=== PATIENT | female | born 1945 | race Caucasian/White ===

== ENCOUNTER → 2018-09-15 17:33 | Outpatient (CLI) | payer MEDICARE ==
[2015-03-01 09:45] VITALS: BMI 31.5
[~2018-09-15 17:33] MED LIST: AMBIEN5 MG PO; ATARAX 25 MG TA25 MG PO; ATIVAN0.5 MG PO; ATROVENT 0.02%2.5 ML UPD; BACTRIM DS TABL1 TAB PO; BENICAR20 MG PO; CARDIZEM CD240 MG PO; CARDURA2 MG PO; CARDURA4 MG PO; CATAPRES0.1 MG PO; CELEBREX200 MG PO; CELEXA40 MG PO; COLACE100 MG PO; CORDARONE200 MG PO; DULCOLAX5 MG PO; DUONEB 2.5-0.5 M3 ML UPD; DURAGESIC1 PATCH .2 TD; DURAGESIC1 PATCH .3 TD; DURAGESIC1 PATCH .3 TRANSDERM; ELAVIL25 MG PO; FERROUS SULFAT325 MG PO; HUMALOG 30100 UNITS/ SC; HYDROCHLOROTH12.5 M1 PO; HYDROCODON-ACE1 EAC7 PO; HYDROCODON-ACE1 EAC9 PO; HYDROCODONE-APA1 TAB PO; K-DUR20 MEQ PO; L-METHYLFOLATE7.5 MG PO; LANOXIN250 MCG PO; LASIX20 MG PO; LEVAQUIN500 MG PO; LEVSIN/ANASP0.125 MG PO; LOVENOX INJ100 MG/ML SQ; LYRICA75 MG PO; MEDROL DOSE PACK4 MG PO; MIRALAX17 GM PO; MULTI-DAY VITAM1 TAB PO; NEPHROCAPS SOFTG1 MG PO; NITRO-BID60 GM TP; NITRO-DUR0.2 MG TD; NORVASC5 MG PO; ONDANSETRON4 MG/2 M3 OR; PRAVACHOL20 MG PO; PROCARDIA XL60 MG PO; PROTONIX40 MG PO; RESTASIS EYE DR30 EA EACH EYE; ROCEPHIN 1 GM IN1 GM IV; SENNA PLUS TA1 UDTAB PO; STERAPRED 5MG 125 MG PO; SYNTHROID100 MCG PO; SYNTHROID112 MCG PO; SYNTHROID125 MCG PO; SYNTHROID137 MCG PO; SYNTHROID25 MCG PO; TAMBOCOR100 MG PO; TENORMIN50 MG PO; TESSALON PERLE100 MG PO; TUMS500 MG PO; TYLENOL 325 MG325 MG PO; TYLENOL650 MG RC; VITAMIN B-1000 MCG/M IM; VITAMIN B-12500 MCG PO; XARELTO20 MG PO; ZANAFLEX2 MG PO; ZAROXOLYN5 MG PO; ZOFRAN4 MG PO
[2018-09-25 17:08] LABS: AEROBE ID Final report (())
[2018-09-26 17:07] LABS: AEROBE ID Final report (())
== END | disposition home or self-care (01) ==
LOC: D.LABREF 17:33
PROVIDERS: Podiatrist Foot & Ankle Surgery
DX: L02.416 Cutaneous abscess of left lower limb (principal)

== ENCOUNTER → 2018-11-17 19:37 | Outpatient (CLI) | payer MEDICARE ==
[2015-03-01 09:45] VITALS: BMI 31.5
[2018-11-17 20:33] LABS: ANION GAP 13.4 mmol/L (8-16); CALCIUM 8.3 mg/dL (8.5-10.1); CARBON DIOXIDE 27.4 mmol/L (21.0-32.0); CREATININE - SERUM 0.9 mg/dL (0.6-1.3); POTASSIUM - SERUM 4.8 mmol/L (3.5-5.1)
[2018-11-17 20:42] LABS: BASOPHILS 0.2 % (0-2); EOSINOPHILS 3.1 % (0-7); HEMATOCRIT 30.7 % (36.0-48.0); HEMOGLOBIN 9.7 g/dL (12-16); IMMATURE GRANULOCYTES 0.2 % (0-5); LYMPHOCYTES 31.5 % (15-50); MCH 24.5 pg (26.0-34.0); MCHC 31.6 g/dL (31.0-37.0); MCV 77.5 fL (80.0-100.0); MEAN PLATELET VOLUME 11.1 fL (7.4-10.4); MONOCYTES 9.6 % (2-11); NEUTROPHILS 55.4 % (40-80); RBC 3.96 10x6/uL (4.00-5.40); RDW 16.5 % (11.5-14.5); WBC 6.4 10x3/uL (4.8-10.8)
[2018-11-17 20:47] LABS: PLATELET COUNT 252 10x3/uL (130-400)
[2018-11-17 21:55] LABS: ERYTHROCYTE SEDIMENTATION RATE 28 mm/hr (0-30)
== END | disposition home or self-care (01) ==
LOC: D.LABREF 19:37
PROVIDERS: ATTEND Student in an Organized Health Care Education/Training Program
DX: M86.669 Other chronic osteomyelitis, unspecified tibia and fibula (principal)

== ENCOUNTER 2018-11-24 11:57 | Outpatient (CLI) | payer MEDICARE ==
[~2018-11-24] VITALS: Ht 167.6 cm; Wt 81.8 kg
--- NOTE | ~2018-11-24 | HEMODYNAMI ---
PATIENT:JENA BURT MEDICAL RECORD: [id number] : 43 LOCATION:[facility] ADMISSION DATE: 11/24/18 Generatedon:11/24/201815:17 Patient name: JENA BURT Patient #: [id number] SSN: : 1945 Date of study: 11/24/2018 Page: Of Hemodynamic Procedure Report Patient Data Patient Demographics Procedure consent was obtained First Name: JENA Gender: Female Last Name: CARMEL : 1945 [facility] Initial: K Age: 73 year(s) Patient #: [id number] Race: Unknown Additional ID: [id number] Contact details [address]: [address] [place] [address] State: [place] City: [place] Zip code: [address] Past Medical History Allergies Allergen Reaction Date Comments Reported Other allergy 11/24/2018 codeine Admission Admission Data Admission Date: 11/24/2018 Admission Time: 11:57 Procedure Procedure Types Cath Procedure Peripheral Cath Diagnostic Procedure PICC PICC Line Placement Procedure Description Procedure Date Procedure Date: 11/24/2018 Procedure Start Time: 14:50 Procedure End Time: 15:17 Procedure Staff Name Function Chandler Simmons MD Performing Physician Enma Torres Monitor Enma Torres Scrub Betsy Terrell RN Nurse Procedure Data Cath Procedure Fluoroscopy Diagnostic fluoroscopy Total fluoroscopy Time: 0.3 time: 0.3 min min Diagnostic fluoroscopy Total fluoroscopy dose: 1 dose: 1 mGy mGy Contrast Material Contrast Material Type Amount (ml) Isovue 300 0 Hemodynamics Rest Pre Cath Intra NCS Post Cath Procedure Log Time Note 13:52:12 Betsy Terrell RN sent for patient. Start room use. 13:52:18 Time tracking: Regular hours (M-F 7:00 - 5:00) 13:52:32 Plan of Care:Hemodynamics will remain stable., Cardiac rhythm will remain stable., Comfort level will be maintained., Respiratory function will remain adequate., Patient/ family verbilizes understanding of procedure., Procedure tolerated without complication., Recovers from procedure without complications.. 13:52:48 Use device set IR Diagnostic 13:52:51 Bag Decanter (2002S) opened to sterile field. 13:52:52 Sterile Angiographic Pack opened to sterile field. 13:52:57 Tegaderm 4 x 4 (1626W) opened to sterile field. 14:23:27 Patient received from Outpatients to IR Alert and oriented. Tansferred to table in Supine position. 14:23:30 Warm blankets applied, and jaswinder hugger turned on for patient comfort. 14:23:32 Correct patient and procedure confirmed by team. 14:23:36 Signed procedure consent form obtained from patient. 14:23:38 - 14:24:19 H&P Date Dictated: 11/24/2018 H&P Addendum completed by physician on day of procedure. (MUST COMPLETE FOR ALL OUTPATIENTS). 14:24:22 Pre-procedure instructions explained to patient. 14:24:23 Pre-op teaching completed and patient verbalized understanding. 14:25:35 Family in patients room. 14:25:38 Patient NPO since Lunch. 14:26:00 Patient allergic to Other allergycodeine 14:26:35 Left Arm was prepped with chlora-prep and draped in sterile fashion. 14:40:40 Physician arrived 14:41:04 --------ALL STOP TIME OUT------ 14:41:17 Final Timeout: patient, procedure, and site verified with staff and physician. All members of the team are in agreement. 14:43:36 Procedure started. 14:43:36 Full Disclosure recording started 14:50:49 Local anesthetic to left arm with Lidocaine 1% by Chandler Simmons MD.INITIAL ACCESS ONLY 14:51:01 The picc line kit is used to access the left brachial arm vein. 14:52:33 The PICC LINE IS PLACED AT 46CM. 14:53:31 Contrast amount:Isovue 300 0ml. 15:06:53 Procedure ended.(Physican Out) 15:07:15 Fluoroscopy time 00.30 minutes. 15:07:21 Fluoroscopy dose: 1 mGy 15:07:21 Flurop Dose total: 1 15:10:04 Post left arm:clean and dry 15:10:11 Patient needs reinforcement of post procedure teaching. 15:10:18 See physician's report for complete and final results. 15:10:28 Procedure and supply charges have been captured, reviewed, submitted an d are correct. 15:16:51 Report given to Outpatients. 15:16:56 Patient transfered to Outpatients with Stretcher. 15:17:01 Procedure ended. 15:17:01 Full Disclosure recording stopped Device Usage Item Name Manufacture Quantity Catalog Hospital Part Current Minimal Lot# / Number Charge Number Stock Stock Serial# Code Bag Decanter Microtek 1 [id number] () [employer] Sterile Cardinal 1 [id number] Angiographic Health Pack Tegaderm 4 x 3M 1 [id number] 4 ([id number]) Signature Audit Susan Stage Time Signature Unsigned Intra-Procedure 11/24/2018 Enma 3:17:36 PM Brian Signatures Monitor : Enma Signature : Brian Date : Time : [address] [id number]
[2018-11-24 15:31] VITALS: BP 144/63; Ht 167.6 cm; Wt 81.8 kg
--- NOTE | 2018-11-24 17:24 | NUR ---
INFUSION FINISHED. DC INSTRUCTIONS GIVEN TO PT/FAMILY. DC'D TUBING. PICC LINE PATENT. PT LEFT UNIT VIA WC AT 1726.
== END 2018-11-24 17:26 | disposition home or self-care (01) ==
LOC: D.OPS 11:57
PROVIDERS: ATTEND Student in an Organized Health Care Education/Training Program
DX: M86.669 Other chronic osteomyelitis, unspecified tibia and fibula (principal)

== ENCOUNTER → 2018-11-29 13:41 | Outpatient (CLI) | payer MEDICARE ==
[2018-11-29 15:18] LABS: BASOPHILS 0.2 % (0-2); EOSINOPHILS 1.7 % (0-7); HEMATOCRIT 26.4 % (36.0-48.0); HEMOGLOBIN 8.4 g/dL (12-16); IMMATURE GRANULOCYTES 0.2 % (0-5); LYMPHOCYTES 23.6 % (15-50); MCH 24.7 pg (26.0-34.0); MCHC 31.8 g/dL (31.0-37.0); MCV 77.6 fL (80.0-100.0); MEAN PLATELET VOLUME 10.7 fL (7.4-10.4); MONOCYTES 10.7 % (2-11); NEUTROPHILS 63.6 % (40-80); RDW 17.1 % (11.5-14.5); WBC 6.1 10x3/uL (4.8-10.8)
[2018-11-29 15:33] LABS: PLATELET COUNT 201 10x3/uL (130-400)
[2018-11-29 15:38] LABS: CREATININE - SERUM 0.9 mg/dL (0.6-1.3)
[2018-11-29 16:24] LABS: ERYTHROCYTE SEDIMENTATION RATE 37 mm/hr (0-30)
== END | disposition home or self-care (01) ==
LOC: D.LABREF 13:41
PROVIDERS: Student in an Organized Health Care Education/Training Program
DX: M86.60 Other chronic osteomyelitis, unspecified site (principal)

== ENCOUNTER → 2018-12-06 13:46 | Outpatient (CLI) | payer MEDICARE ==
[2018-11-24 15:31] VITALS: BMI 29.1
[~2018-12-06 13:46] MED LIST changes: +LIPITOR40 MG PO; +LISINOPRIL5 MG PO; +PREMARIN0.625 MG PO; +PROBIOTIC BLEN1 EACH; +TEMAZEPAM30 MG PO; +ZANAFLEX2 M1 PO
[2018-12-06 14:59] LABS: BASOPHILS 0.3 % (0-2); EOSINOPHILS 2.2 % (0-7); HEMATOCRIT 30.5 % (36.0-48.0); HEMOGLOBIN 9.5 g/dL (12-16); IMMATURE GRANULOCYTES 0.2 % (0-5); MCH 24.7 pg (26.0-34.0); MCHC 31.1 g/dL (31.0-37.0); MCV 79.4 fL (80.0-100.0); MONOCYTES 8.3 % (2-11); RBC 3.84 10x6/uL (4.00-5.40); RDW 17.8 % (11.5-14.5); WBC 5.9 10x3/uL (4.8-10.8)
[2018-12-06 15:06] LABS: PLATELET COUNT 244 10x3/uL (130-400)
[2018-12-06 15:34] LABS: C-REACTIVE PROTEIN 0.2 mg/dL (0.0-0.9)
[2018-12-06 16:11] LABS: ERYTHROCYTE SEDIMENTATION RATE 24 mm/hr (0-30)
== END | disposition home or self-care (01) ==
LOC: D.LABREF 13:46
PROVIDERS: ATTEND Student in an Organized Health Care Education/Training Program
DX: M86.669 Other chronic osteomyelitis, unspecified tibia and fibula (principal)

== ENCOUNTER → 2018-12-13 12:34 | Outpatient (CLI) | payer MEDICARE ==
[2018-11-24 15:31] VITALS: BMI 29.1
[2018-12-13 13:37] LABS: BASOPHILS 0.3 % (0-2); EOSINOPHILS 1.8 % (0-7); HEMOGLOBIN 9.1 g/dL (12-16); IMMATURE GRANULOCYTES 0.2 % (0-5); LYMPHOCYTES 23.4 % (15-50); MCH 24.6 pg (26.0-34.0); MCHC 31.4 g/dL (31.0-37.0); MCV 78.4 fL (80.0-100.0); MEAN PLATELET VOLUME 10.7 fL (7.4-10.4); MONOCYTES 8.6 % (2-11); NEUTROPHILS 65.7 % (40-80); PLATELET COUNT 249 10x3/uL (130-400); WBC 6.5 10x3/uL (4.8-10.8)
[2018-12-13 13:58] LABS: CREATINE KINASE 204 UL (21-215); UREA NITROGEN 22 mg/dL (7-18)
[2018-12-13 13:59] LABS: C-REACTIVE PROTEIN < 0.2 mg/dL (0.0-0.9)
[2018-12-13 14:40] LABS: ERYTHROCYTE SEDIMENTATION RATE 24 mm/hr (0-30)
== END | disposition home or self-care (01) ==
LOC: D.LABREF 12:34
PROVIDERS: ATTEND Student in an Organized Health Care Education/Training Program
DX: M86.669 Other chronic osteomyelitis, unspecified tibia and fibula (principal)

== ENCOUNTER → 2018-12-15 10:49 | Outpatient (CLI) | payer MEDICARE ==
[2018-11-24 15:31] VITALS: BMI 29.1
[2018-12-15 11:32] LABS: CREATINE KINASE 215 UL (21-215)
[2018-12-15 11:34] LABS: CKMB 1.6 U/L (0.0-3.6)
== END | disposition home or self-care (01) ==
LOC: D.LABREF 10:49
PROVIDERS: ATTEND Student in an Organized Health Care Education/Training Program
DX: M86.662 Other chronic osteomyelitis, left tibia and fibula (principal)

== ENCOUNTER → 2018-12-20 13:35 | Outpatient (CLI) | payer MEDICARE ==
[2018-11-24 15:31] VITALS: BMI 29.1
[2018-12-20 14:49] LABS: BASOPHILS 0.1 % (0-2); HEMATOCRIT 27.6 % (36.0-48.0); HEMOGLOBIN 8.7 g/dL (12-16); IMMATURE GRANULOCYTES 0.1 % (0-5); LYMPHOCYTES 20.7 % (15-50); MCH 24.5 pg (26.0-34.0); MCHC 31.5 g/dL (31.0-37.0); MCV 77.7 fL (80.0-100.0); MEAN PLATELET VOLUME 10.9 fL (7.4-10.4); MONOCYTES 9.6 % (2-11); NEUTROPHILS 68.5 % (40-80); PLATELET COUNT 256 10x3/uL (130-400); RBC 3.55 10x6/uL (4.00-5.40); RDW 16.5 % (11.5-14.5); WBC 7.9 10x3/uL (4.8-10.8)
[2018-12-20 15:03] LABS: CREATININE - SERUM 0.9 mg/dL (0.6-1.3)
[2018-12-20 16:05] LABS: ERYTHROCYTE SEDIMENTATION RATE 30 mm/hr (0-30)
== END | disposition home or self-care (01) ==
LOC: D.LABREF 13:35
PROVIDERS: ATTEND Student in an Organized Health Care Education/Training Program
DX: M86.669 Other chronic osteomyelitis, unspecified tibia and fibula (principal)

== ENCOUNTER 2018-12-23 11:16 | Day surgery (SDC) | payer MEDICARE ==
[~2018-12-23] VITALS: Ht 167.6 cm; Wt 86.2 kg
[~2018-12-23 11:16] MED LIST changes: -TEMAZEPAM30 MG PO; -ZANAFLEX2 M1 PO
[2018-12-23 11:44] LABS: HEMATOCRIT 27.9 % (36.0-48.0); LYMPHOCYTES 28.8 % (15-50); MCH 25.2 pg (26.0-34.0); MCHC 32.3 g/dL (31.0-37.0); MCV 78.2 fL (80.0-100.0); MEAN PLATELET VOLUME 9.3 fL (7.4-10.4); NEUTROPHILS 60.5 % (40-80); PLATELET COUNT 229 10x3/uL (130-400); RBC 3.57 10x6/uL (4.00-5.40); RDW 16.4 % (11.5-14.5); WBC 5.5 10x3/uL (4.8-10.8)
[2018-12-23 11:51] LABS: ANION GAP 13.4 mmol/L (8-16); CALCIUM 8.3 mg/dL (8.5-10.1); CARBON DIOXIDE 26.4 mmol/L (21.0-32.0); POTASSIUM - SERUM 4.8 mmol/L (3.5-5.1)
[2018-12-23] MEDS ORDERED: ZANAFLEX2 M1 PO (13:33)
[2018-12-23] MEDS ORDERED: TEMAZEPAM30 MG PO (13:33)
[2018-12-23 13:46] VITALS: BP 153/56; Ht 167.6 cm; Wt 86.2 kg
--- NOTE | 2018-12-23 17:00 | NUR ---
REC'D FROM RR. DRESSING CDI TO LLE. PULSES PALPABLE. LENON MODOC SODA BROUGHT TO PATIENT,ICE PACK BROUGHT TO PATIENT.
--- NOTE | 2018-12-23 17:10 | NUR ---
DR BANGURA IN WITH PATIENT.
[2018-12-23] MEDS ORDERED: HYDROCODON-ACE1 EAC7 PO (17:14)
--- NOTE | 2018-12-23 17:30 | NUR ---
JODI JOHNSON BROUGHT TO PATIENT. TALKING ON THE TELEPHONE.
--- NOTE | 2018-12-23 18:00 | NUR ---
TOLERATED FL TRAY. TALKING ON THE TELEPHONE.
--- NOTE | 2018-12-23 18:30 | NUR ---
IV DC'D WITH [facility]HETER INTACT. CALLED FOR TRANSPORTATION HOME.
--- NOTE | 2018-12-23 19:00 | NUR ---
WRITTEN AND VERBAL DC INST. GIVEN TO PT. VERBALIZED UNDERSTANDING. ASSISTED TO BATHROOM AND VOIDED WITHOUT DIFFICULTY. ASSISTED WITH DRESSING. DC'D HOME WITH FRIEND VIA PRIVATE VEHICLE. TAKEN TO VEHICLE VIA WC. STABLE AT TIME OF DC.
== END 2018-12-23 19:00 | disposition home or self-care (01) ==
LOC: D.OPS 11:16
PROVIDERS: Anesthesiology; ATTEND Podiatrist Foot & Ankle Surgery
DX: M86.8X6 Other osteomyelitis, lower leg (principal); L97.229 Non-pressure chronic ulcer of left calf with unspecified severity; Z01.812 Encounter for preprocedural laboratory examination

== ENCOUNTER → 2018-12-27 15:11 | Outpatient (CLI) | payer MEDICARE ==
[2018-12-23 13:46] VITALS: BMI 30.7
[~2018-12-27 15:11] MED LIST changes: +TEMAZEPAM30 MG PO; +ZANAFLEX2 M1 PO
[2018-12-27 15:36] LABS: BASOPHILS 0.1 % (0-2); EOSINOPHILS 2.6 % (0-7); HEMATOCRIT 27.3 % (36.0-48.0); HEMOGLOBIN 8.4 g/dL (12-16); IMMATURE GRANULOCYTES 0.1 % (0-5); LYMPHOCYTES 20.3 % (15-50); MCH 24.1 pg (26.0-34.0); MCHC 30.8 g/dL (31.0-37.0); MCV 78.4 fL (80.0-100.0); MEAN PLATELET VOLUME 10.9 fL (7.4-10.4); NEUTROPHILS 68.9 % (40-80); PLATELET COUNT 250 10x3/uL (130-400); RBC 3.48 10x6/uL (4.00-5.40); RDW 16.8 % (11.5-14.5); WBC 7.8 10x3/uL (4.8-10.8)
[2018-12-27 15:49] LABS: C-REACTIVE PROTEIN 6.4 mg/dL (0.0-0.9); CREATININE - SERUM 0.9 mg/dL (0.6-1.3)
[2018-12-27 16:44] LABS: ERYTHROCYTE SEDIMENTATION RATE 49 mm/hr (0-30)
== END | disposition home or self-care (01) ==
LOC: D.LABREF 15:11
PROVIDERS: ATTEND Student in an Organized Health Care Education/Training Program
DX: M86.69 Other chronic osteomyelitis, multiple sites (principal)

== ENCOUNTER → 2019-01-03 10:01 | Outpatient (CLI) | payer MEDICARE ==
[2018-12-23 13:46] VITALS: BMI 30.7
[2019-01-03 11:59] LABS: BASOPHILS 0.1 % (0-2); EOSINOPHILS 4.1 % (0-7); HEMATOCRIT 26.7 % (36.0-48.0); HEMOGLOBIN 8.2 g/dL (12-16); IMMATURE GRANULOCYTES 0.1 % (0-5); MCH 23.8 pg (26.0-34.0); MCHC 30.7 g/dL (31.0-37.0); MCV 77.4 fL (80.0-100.0); MEAN PLATELET VOLUME 10.1 fL (7.4-10.4); NEUTROPHILS 62.7 % (40-80); PLATELET COUNT 275 10x3/uL (130-400); RBC 3.45 10x6/uL (4.00-5.40); RDW 16.4 % (11.5-14.5); WBC 6.8 10x3/uL (4.8-10.8)
[2019-01-03 12:24] LABS: C-REACTIVE PROTEIN 0.5 mg/dL (0.0-0.9)
[2019-01-03 13:49] LABS: ERYTHROCYTE SEDIMENTATION RATE 23 mm/hr (0-30)
== END | disposition home or self-care (01) ==
LOC: D.LABREF 10:01
PROVIDERS: ATTEND Student in an Organized Health Care Education/Training Program
DX: M86.669 Other chronic osteomyelitis, unspecified tibia and fibula (principal)

== ENCOUNTER → 2019-03-04 12:50 | Outpatient (CLI) | payer MEDICARE ==
[2018-12-23 13:46] VITALS: BMI 30.7
== END | disposition home or self-care (01) ==
LOC: D.LAB 12:50 → D.RT 15:30
PROVIDERS: ATTEND Internal Medicine Pulmonary Disease
DX: J44.9 Chronic obstructive pulmonary disease, unspecified (principal)

== ENCOUNTER → 2019-09-07 17:47 | Outpatient (CLI) | payer SELFPAY ==
[2018-12-23 13:46] VITALS: BMI 30.7
== END | disposition home or self-care (01) ==
LOC: D.LABREF 17:47
PROVIDERS: ATTEND Podiatrist Foot & Ankle Surgery
DX: M79.9 Soft tissue disorder, unspecified (principal)